=== PATIENT | male | born 1960 | race Caucasian/White ===

== ENCOUNTER 2018-06-07 19:05 | Inpatient (IN) | payer MEDICAID, OTHER ==
[2018-06-07] MEDS ORDERED: Sodium Chloride 0.9% 1,000 ML IV ONE (19:42)
[2018-06-07] MEDS ORDERED: Iohexol 240 (50 ml) PO ONE (19:45)
[2018-06-07 19:50] LABS: BASO # 0.1 K/uL (0.0-0.2); EOS # 0.2 K/uL (0.0-0.7); HEMOGLOBIN 14.8 g/dL (12.0-18.0); MONO # 0.8 K/uL (0.0-0.8)
--- NOTE | 2018-06-07 19:56 | C.PDOC ---
History Of Present Illness 57 year old male presents to ED with complaint of right lower quadrant abdominal pain that began 2 days ago. He describes the pain as constant and worsening with no radiation. He has a past medical history of hypertension and diabetes. Patient's PMD is . He denies smoking and any alcohol or drug abuse. Patient has a family history of stomach cancer. Patient has been experiencing discomfort with urination and frequency of urination. He denies any testicular or flank pain, fever, chills, nausea, vomiting, diarrhea, and constipation. Time Seen by Provider: 06/07/18 19:31 Chief Complaint (Nursing): Abdominal Pain History Per: Patient History/Exam Limitations: no limitations Onset/Duration Of Symptoms: Days (2) Current Symptoms Are (Timing): Still Present Location Of Pain/Discomfort: RLQ Quality Of Discomfort: "Pain" Associated Symptoms: Urinary Symptoms. denies: Fever, Chills, Nausea, Vomiting, Diarrhea, Constipation, Other (testicular pain) Past Medical History Reviewed: Historical Data, Nursing Documentation, Vital Signs Vital Signs: Last Vital Signs Temp 98.5 F 06/07/18 19:15 Pulse 90 06/07/18 19:15 Resp 16 06/07/18 19:15 BP 144/94 H 06/07/18 19:15 Pulse Ox 99 06/07/18 19:15 - Medical History PMH: Diabetes, HTN Family History: States: Other Other Family History: Stomach cancer - Social History Hx Alcohol Use: No Hx Substance Use: No - Immunization History Hx Tetanus Toxoid Vaccination: No Hx Influenza Vaccination: No Hx Pneumococcal Vaccination: No Review Of Systems Constitutional: Negative for: Fever, Chills, Weakness Cardiovascular: Negative for: Chest Pain, Palpitations Respiratory: Negative for: Cough, Shortness of Breath Gastrointestinal: Positive for: Abdominal Pain (right lower quadrant). Negative for: Nausea, Vomiting, Diarrhea, Constipation Genitourinary: Positive for: Dysuria (discomfort), Frequency. Negative for: Penile Pain Neurological: Negative for: Weakness, Numbness, Dizziness Physical Exam - Physical Exam Appears: No Acute Distress Skin: Warm, Dry Head: Atraumatic, Normacephalic Eye(s): bilateral: PERRL, EOMI Oral Mucosa: Moist Throat: No Erythema, No Exudate Cardiovascular: Rhythm Regular, No Murmur Respiratory: Normal Breath Sounds, No Wheezing Gastrointestinal/Abdominal: Tenderness (right lower quadrant, McBurney's point), No Mass, No Guarding, No Rebound, No Other (Gaston's sign) Back: Normal Inspection Extremity: Normal ROM, No Deformity ED Course And Treatment - Laboratory Results Result Diagrams: 06/09/18 07:18 06/09/18 07:18 O2 Sat by Pulse Oximetry: 99 (RA) Medical Decision Making Medical Decision Making: Impression: Right lower quadrant pain Differential Diagnosis: appendicitis, mesenteric addenitis, cystitis, renal colic Plan: CT Abdomen and Pelvis ordered for patient. Labs ordered with glucose and UA for patient. Patient given IV fluids. Labs unremarkable but CT c/w appendicitis DW Dr Suarez Surgery and Dr Hernandez Hospitalist DW pt findings and plan of care. Pt continues to decline pain medication. Disposition Counseled Patient/Family Regarding: Studies Performed, Diagnosis - Disposition Disposition: HOSPITALIZED Disposition Time: 23:00 Condition: FAIR - Clinical Impression Clinical Impression: Appendicitis - Scribe Statement The provider has reviewed the documentation as recorded by the Scribe (Phyllis Stephens) All medical record entries made by the Scribe were at my direction and personally dictated by me. I have reviewed the chart and agree that the record accurately reflects my personal performance of the history, physical exam, medical decision making, and the department course for this patient. I have also personally directed, reviewed, and agree with the discharge instructions and disposition.
[2018-06-07 20:05] LABS: BASO % 0.7 % (0.0-2.0); EOS % 2.3 % (0.0-4.0); LYMPH # 2.7 K/uL (1.0-4.3); LYMPH % 33.2 % (20.0-40.0); MEAN CELL VOLUME 88.1 fL (80.0-94.0); MEAN CORPUSCULAR HEMOGLOBIN 29.5 pg (27.0-31.0); MEAN CORPUSCULAR HGB CONC 33.5 g/dL (33.0-37.0); MEAN PLATELET VOLUME 8.4 fL (7.2-11.7); MONO % 9.7 % (0.0-10.0); NEUT # 4.3 K/uL (1.8-7.0); NEUT % 54.1 % (50.0-75.0); NRBC % 0.1 % (0.0-2.0); RBC 5.02 Mil/uL (4.40-5.90); RED CELL DISTRIBUTION WIDTH 13.5 % (11.5-14.5)
[2018-06-07 20:21] LABS: ALB/GLOB RATIO 1.4 (1.0-2.1)
[2018-06-07] MEDS ORDERED: Iohexol 240 (50 ml) ONE (20:24)
[2018-06-07 20:27] LABS: ALBUMIN 4.4 g/dL (3.5-5.0); ALT/SGPT 17 U/L (21-72); AST/SGOT 25 U/L (17-59); BLOOD UREA NITROGEN 22 mg/dL (9-20); CALCIUM 8.8 mg/dl (8.6-10.4); GFR NON-AFRICAN AMERICAN > 60
[2018-06-07 20:47] LABS: URINE BILIRUBIN NEGATIVE (NEGATIVE); URINE BLOOD 2+ (NEGATIVE); URINE CLARITY Clear (Clear); URINE COLOR Yellow (YELLOW); URINE GLUCOSE (UA) 1+ mg/dL (Normal); URINE LEUKOCYTE ESTERASE NEG Leu/uL (Negative); URINE PROTEIN NEGATIVE (NEGATIVE); URINE UROBILINOGEN NORMAL mg/dL (0.2-1.0)
[2018-06-07] MEDS ORDERED: Iohexol 300 100 ML IJ ONE (21:28)
[2018-06-07] MEDS ORDERED: Piperacillin/Tazobact 3.375 gm 100 ML IV STA (23:20)
[2018-06-07] MEDS ORDERED: Piperacillin/Tazobact 3.375 gm 100 ML IVPB ONE (23:35)
--- NOTE | 2018-06-07 23:37 | CP.PCM.HP ---
<Anusha Rene - Last Filed: 06/08/18 00:30> History of Present Illness - History of Present Illness History of Present Illness: PGY-1 Anusha Rene D.O. H&P for Dr. Hernandez's service: Patient is a 57 yo Somali male with a history of T2DM and HTN who presents with abdominal pain. Patient states the pain started 2-3 days ago. It came on gradually and was located in his mid right abdomen. The pain worsened and migrated more into his RLQ. He describes the pain as sharp. He rates the pain severity as 7/10. He did not do anything/take any medication to help relieve the pain. He did not note anything that makes the pain worse. He denies fevers and chills. Denies N/V/C/D. Denies change in appetite. PMH: T2DM, HTN PSH: back surgery for herniated disc 30 years ago Meds: Metformin 500 mg PO BID, Lisinopril 10 mg PO daily All: NKA upon admission (reaction to Zosyn in ED) FH: father ( 84)- cancer in the abdomen SH: lives with and children, works as pharmacy supplier, denies alcohol, tobacco, illicit drug use PMD: none (previously Renny Patel) Present on Admission - Present on Admission Any Indicators Present on Admission: No History of DVT/PE: No History of Uncontrolled Diabetes: No Urinary Catheter: No Decubitus Ulcer Present: No History Surgical Site Infection Following: None Review of Systems - Constitutional Constitutional: absent: Chills, Fever, Weight Loss - EENT Eyes: absent: Change in Vision Ears: absent: Decreased Hearing Nose/Mouth/Throat: absent: Nasal Congestion - Cardiovascular Cardiovascular: absent: Chest Pain, Diaphoresis, Dyspnea, Palpitations, Syncope - Respiratory Respiratory: absent: Cough, Dyspnea - Gastrointestinal Gastrointestinal: As Per HPI, Abdominal Pain. absent: Constipation, Diarrhea, Heartburn, Nausea, Vomiting - Genitourinary Genitourinary: Dysuria, Urinary Frequency. absent: Hematuria - Musculoskeletal Musculoskeletal: absent: Numbness, Tingling - Integumentary Integumentary: Pruritus. absent: Lesions - Neurological Neurological: absent: Dizziness, Focal Weakness, Headaches, Paresthesias - Psychiatric Psychiatric: absent: Anxiety, Depression - Endocrine Endocrine: Polyuria. absent: Palpitations - Hematologic/Lymphatic Hematologic: absent: Easy Bleeding, Easy Bruising, Lymphadenopathy Past Patient History - Infectious Disease Hx of Infectious Diseases: None - Tetanus Immunizations Tetanus Immunization: Unknown - Past Medical History & Family History Past Medical History?: Yes Past Family History: Reviewed and not pertinent - Past Social History Smoking Status: Never Smoked Chewing Tobacco Use: No Cigar Use: No Alcohol: None Drugs: Denies Home Situation {Lives}: With Family - CARDIAC Hx Hypertension: Yes - ENDOCRINE/METABOLIC Hx Diabetes Mellitus Type 2: Yes - PSYCHIATRIC Hx Substance Use: No Meds Allergies/Adverse Reactions: Allergies Allergy/AdvReac Type Severity Reaction Status Date / Time piperacillin [From Zosyn] Allergy RASH Verified 06/08/18 00:18 tazobactam [From Zosyn] Allergy RASH Verified 06/08/18 00:18 Physical Exam - Constitutional Appears: Non-toxic, No Acute Distress - Head Exam Head Exam: ATRAUMATIC, NORMAL INSPECTION - Eye Exam Eye Exam: EOMI, Normal appearance, PERRL - ENT Exam ENT Exam: Mucous Membranes Moist - Neck Exam Neck exam: Positive for: Normal Inspection - Respiratory Exam Respiratory Exam: Clear to Auscultation Bilateral, NORMAL BREATHING PATTERN - Cardiovascular Exam Cardiovascular Exam: RRR, +S1, +S2 - GI/Abdominal Exam GI & Abdominal Exam: Guarding, Normal Bowel Sounds, Soft, Tenderness (RLQ). absent: Distended, Rebound, Rigid Additional comments: negative Gaston's sign negative Psoas sign - Extremities Exam Extremities exam: Positive for: normal inspection, pedal pulses present. Negative for: pedal edema - Back Exam Back exam: NORMAL INSPECTION - Neurological Exam Neurological exam: Alert, CN II-XII Intact, Oriented x3 - Psychiatric Exam Psychiatric exam: Normal Affect, Normal Mood - Skin Skin Exam: Normal Color, Rash (hives on shoulders and left arm), Warm Results - Vital Signs Recent Vital Signs: Last Vital Signs Temp 98.5 F 06/07/18 19:15 Pulse 88 06/07/18 21:57 Resp 16 06/07/18 21:57 BP 147/91 H 06/07/18 21:57 Pulse Ox 98 06/07/18 21:57 - Labs Result Diagrams: 06/07/18 19:46 06/07/18 19:46 Labs: Laboratory Results - last 24 hr 06/07/18 06/07/1806/07/19 19:46 19:46 19:48 WBC 8.0 RBC 5.02 Hgb 14.8 Hct 44.2 MCV 88.1 MCH 29.5 MCHC 33.5 RDW 13.5 Plt Count 231 MPV 8.4 Neut % (Auto) 54.1 Lymph % (Auto) 33.2 [place] % (Auto) 9.7 Eos % (Auto) 2.3 Baso % (Auto) 0.7 Neut # (Auto) 4.3 Lymph # (Auto) 2.7 [place] # (Auto) 0.8 Eos # (Auto) 0.2 Baso # (Auto) 0.1 Sodium 135 Potassium 3.9 Chloride 99 Carbon Dioxide 26 Anion Gap 13 BUN 22 H Creatinine 0.9 Est GFR ( Amer) > 60 Est GFR (Non-Af Amer) > 60 POC Glucose (mg/dL) 204 H Random Glucose 233 H Calcium 8.8 Total Bilirubin 0.7 AST 25 ALT 17 L Alkaline Phosphatase 55 Total Protein 7.6 Albumin 4.4 Globulin 3.2 Albumin/Globulin Ratio 1.4 Urine Color Urine Clarity Urine pH Ur Specific [place] Urine Protein Urine Glucose (UA) Urine Ketones Urine Blood Urine Nitrate Urine Bilirubin Urine Urobilinogen Ur Leukocyte Esterase Urine RBC (Auto) 06/07/18 20:36 WBC RBC Hgb Hct MCV MCH MCHC RDW Plt Count MPV Neut % (Auto) Lymph % (Auto) [place] % (Auto) Eos % (Auto) Baso % (Auto) Neut # (Auto) Lymph # (Auto) [place] # (Auto) Eos # (Auto) Baso # (Auto) Sodium Potassium Chloride Carbon Dioxide Anion Gap BUN Creatinine Est GFR ( Amer) Est GFR (Non-Af Amer) POC Glucose (mg/dL) Random Glucose Calcium Total Bilirubin AST ALT Alkaline Phosphatase Total Protein Albumin Globulin Albumin/Globulin Ratio Urine Color Yellow Urine Clarity Clear Urine pH 6.0 Ur Specific [place] 1.010 Urine Protein Negative Urine Glucose (UA) 1+ H Urine Ketones Negative Urine Blood 2+ H Urine Nitrate Negative Urine Bilirubin Negative Urine Urobilinogen Normal Ur Leukocyte Esterase Neg Urine RBC (Auto) 15 H Assessment & Plan - Assessment and Plan (Free Text) Assessment: Patient is a 57 yo male with a history of T2DM and HTN who presented with abdominal pain. CT showed acute appendicitis. Surgery consulted and patient will go to OR tomorrow 06/08. Plan: Acute appendicitis - CT A/P: fluid distention up to 1.2 cm transversely of retrocecal appendix, appendiceal mucosal wall thickening with associated periappendiceal haziness consistent with acute appendicitis - Pre-op EKG, CXR, coags - Afebrile, no leukocytosis - f/u Blood Cx - Patient received Zosyn in ED- developed hives and pruritus, Zosyn stopped, given IV Benadryl - Cipro 400 mg IV Q12H- started 06/08 - NS @ 100 mL/hr - Surgery consulted (Erick) Microscopic hematuria - CT A/P: kidneys wnl, no urinary calculi, bladder normal size and configuration - UA: 1+ glucose, 2+ blood, 15 RBC - f/u Urine Cx Type 2 diabetes mellitus - Accuchecks Q6H - Hypoglycemic protocol - ISS - A1c pending Hypertension - Vitals Q6H - Lisinopril 10 mg PO daily Ppx: VTE: SCDs, chemical AC contraindicated for surgery GI: Protonix 40 mg IV daily Code status: full code Case discussed with attending, Dr. Hernandez. <Harshil Hernanedz - Last Filed: 06/08/18 06:15> Results - Vital Signs Recent Vital Signs: Last Vital Signs Temp 98 F 06/08/18 01:00 Pulse 82 06/08/18 01:00 Resp 20 06/08/18 01:00 BP 151/90 H 06/08/18 01:00 Pulse Ox 97 06/08/18 01:00 - Labs Result Diagrams: 06/07/18 19:46 06/07/18 19:46 Labs: Laboratory Results - last 24 hr 06/07/18 06/07/18 06/07/18 19:46 19:46 19:48 WBC 8.0 RBC 5.02 Hgb 14.8 Hct 44.2 MCV 88.1 MCH 29.5 MCHC 33.5 RDW 13.5 Plt Count 231 MPV 8.4 Neut % (Auto) 54.1 Lymph % (Auto) 33.2 [place] % (Auto) 9.7 Eos % (Auto) 2.3 Baso % (Auto) 0.7 Neut # (Auto) 4.3 Lymph # (Auto) 2.7 [place] # (Auto) 0.8 Eos # (Auto) 0.2 Baso # (Auto) 0.1 PT INR APTT Sodium 135 Potassium 3.9 Chloride 99 Carbon Dioxide 26 Anion Gap 13 BUN 22 H Creatinine 0.9 Est GFR ( Amer) > 60 Est GFR (Non-Af Amer) > 60 POC Glucose (mg/dL) 204 H Random Glucose 233 H Calcium 8.8 Total Bilirubin 0.7 AST 25 ALT 17 L Alkaline Phosphatase 55 Total Protein 7.6 Albumin 4.4 Globulin 3.2 Albumin/Globulin Ratio 1.4 Urine Color Urine Clarity Urine pH Ur Specific [place] Urine Protein Urine Glucose (UA) Urine Ketones Urine Blood Urine Nitrate Urine Bilirubin Urine Urobilinogen Ur Leukocyte Esterase Urine RBC (Auto) 06/07/18 06/08/18 06/08/18 20:36 00:35 00:46 WBC RBC Hgb Hct MCV MCH MCHC RDW Plt Count MPV Neut % (Auto) Lymph % (Auto) [place] % (Auto) Eos % (Auto) Baso % (Auto) Neut # (Auto) Lymph # (Auto) [place] # (Auto) Eos # (Auto) Baso # (Auto) PT 12.7 H INR 1.2 APTT 31 Sodium Potassium Chloride Carbon Dioxide Anion Gap BUN Creatinine Est GFR ( Amer) Est GFR (Non-Af Amer) POC Glucose (mg/dL) 131 H Random Glucose Calcium Total Bilirubin AST ALT Alkaline Phosphatase Total Protein Albumin Globulin Albumin/Globulin Ratio Urine Color Yellow Urine Clarity Clear Urine pH 6.0 Ur Specific [place] 1.010 Urine Protein Negative Urine Glucose (UA) 1+ H Urine Ketones Negative Urine Blood 2+ H Urine Nitrate Negative Urine Bilirubin Negative Urine Urobilinogen Normal Ur Leukocyte Esterase Neg Urine RBC (Auto) 15 H Assessment & Plan - Date & Time Date: 06/08/18 (I have seen and examined the patient. I agree with the findings and plan of care as documented by Dr. Rene. Patient with acute appendicitis. Consult to surgery. Medically optimize. Plan for appendectomy. Zosyn given in ED but patient had allergic reaction. Airway not compromised. Changed to cipro. History of hypertension and diabetes. Continue home meds. Monitor for acute changes.) Time: 06:13 Attending/Attestation - Attestation I have personally seen and examined this patient.: Yes I have fully participated in the care of the patient.: Yes I have reviewed all pertinent clinical information: Yes
[2018-06-08] MEDS ORDERED: DiphenhydrAMINE 50 mg/ml Inj IVP STA ×2 (00:06→00:08)
[2018-06-08] MEDS ORDERED: metroNIDAZOLE IV 500 mg/100 ml 500 MG/100 ML BAG IVPB STA (00:07)
[2018-06-08] MEDS ORDERED: Dextrose 50% SYRINGE Inj (50 ml) IV PRN (00:12)
[2018-06-08] MEDS ORDERED: Glucagon Recombinant 1 mg Inj IM PRN (00:12)
[2018-06-08] MEDS: (Novolin R) Insulin Human Regular 100 units/ml vial SC SCH ×4 (00:36→18:00)
[2018-06-08] MEDS: Sodium Chloride 0.9% 1,000 ML IV SCH ×3 (01:15→21:39)
[2018-06-08 01:17] LABS: INR 1.2; PROTHROMBIN TIME 12.7 SECONDS (9.7-12.2)
[2018-06-08] MEDS: Ciprofloxacin 400mg/200ml D5W 400 MG/200 ML BAG IVPB SCH ×2 (01:44→12:42)
--- NOTE | 2018-06-08 06:51 | CP.PCM.PN ---
Subjective - Date & Time of Evaluation Date of Evaluation: 06/08/18 Time of Evaluation: 07:30 - Subjective Subjective: PGY1 Medicine progress note for Dr. Ceballos Pt was seen and examined at bedside. Pt is resting comfortably. He rates his RLQ abdominal pain as 2/10, improved from 8/10. Pt denies radiation of the pain. He denies fever, chills, chest pain, sob, n/v/d, dysuria, hematuria. Appendectomy is to be done later this morning. Objective - Vital Signs/Intake and Output Vital Signs (last 24 hours): Temp Pulse Resp BP Pulse Ox 98 F 82 20 151/90 H 97 06/08/18 01:00 06/08/18 01:00 06/08/18 01:00 06/08/18 01:00 06/08/18 01:00 - Medications Medications: Current Medications Dextrose (Dextrose 50% Inj) 0 ml IV STAT PRN; Protocol PRN Reason: Hypoglycemia Protocol Dextrose (Glutose 15) 0 gm PO ONCE PRN; Protocol PRN Reason: Hypoglycemia Protocol Glucagon (Glucagen Diagnostic Kit) 0 mg IM STAT PRN; Protocol PRN Reason: Hypoglycemia Protocol Ciprofloxacin (Cipro 400mg/200ml Dsw) 400 mg in 200 mls @ 133 mls/hr IVPB Q12H JEFFREY; Protocol Last Admin: 06/08/18 01:44 Dose: 133 mls/hr Dextrose (Dextrose 5% In Water 1000 Ml) 1,000 mls @ 0 mls/hr IV .Q0M PRN; Protocol PRN Reason: Hypoglycemia Protocol Sodium Chloride (Sodium Chloride 0.9%) 1,000 mls @ 100 mls/hr IV .Q10H JEFFREY Last Admin: 06/08/18 01:15 Dose: 100 mls/hr Insulin Human Regular (Novolin R) 0 unit SC Q6H JEFFREY; Protocol Last Admin: 06/08/18 00:36 Dose: Not Given Lisinopril (Zestril) 10 mg PO DAILY JEFFREY Pantoprazole Sodium (Protonix Inj) 40 mg IVP DAILY JEFFREY Pneumococcal Polyvalent Vaccine (Pneumovax 23 Vaccine) 0.5 ml IM .ONCE ONE Stop: 06/09/18 10:01 - Labs Labs: 06/07/18 19:46 06/07/18 19:46 PT 12.7 SECONDS (9.7-12.2) H 06/08/18 00:46 INR 1.2 06/08/18 00:46 APTT 31 SECONDS (21-34) 06/08/18 00:46 - Additional Findings Additional findings: - Constitutional Appears: Non-toxic, No Acute Distress - Head Exam Head Exam: ATRAUMATIC, NORMAL INSPECTION - Eye Exam Eye Exam: EOMI, Normal appearance, PERRL - ENT Exam ENT Exam: Mucous Membranes Moist - Neck Exam Neck exam: Positive for: Normal Inspection - Respiratory Exam Respiratory Exam: Clear to Auscultation Bilateral, NORMAL BREATHING PATTERN - Cardiovascular Exam Cardiovascular Exam: RRR, +S1, +S2 - GI/Abdominal Exam GI & Abdominal Exam: Normal Bowel Sounds, Soft, Mild Tenderness at mcburney's point (RLQ). absent: Distended, Rebound, Rigid Additional comments: negative Gaston's sign negative Psoas sign - Extremities Exam Extremities exam: Positive for: normal inspection, pedal pulses present. Negative for: pedal edema - Back Exam Back exam: NORMAL INSPECTION - Neurological Exam Neurological exam: Alert, CN II-XII Intact, Oriented x3 - Psychiatric Exam Psychiatric exam: Normal Affect, Normal Mood - Skin Skin Exam: Normal Color, Warm. No rash. Assessment and Plan - Assessment and Plan (Free Text) Assessment: Patient is a 57 yo male with a history of T2DM and HTN who presented with abdominal pain. CT showed acute appendicitis. Surgery consulted and pt to go for appendectomy today. Plan: Acute appendicitis CT A/P: fluid distention up to 1.2 cm transversely of retrocecal appendix, appendiceal mucosal wall thickening with associated periappendiceal haziness consistent with acute appendicitis Afebrile, no leukocytosis Patient received Zosyn in ED- developed hives and pruritus, Zosyn stopped, given IV Benadryl. Pt states his rash has improved and denies any difficulty breathing or recurrence of itchiness or rash Cipro 400 mg IV q12h started 06/08, Flagyl 500 mg IVPB q8h started 06/08 Continue NS @ 100 mL/hr Surgery consulted (Erick). Will take to OR this morning. F/u blood culture Microscopic hematuria CT A/P: kidneys wnl, no urinary calculi, bladder normal size and configuration UA: 1+ glucose, 2+ blood, 15 RBC Urine culture is negative Will continue to monitor NIDDM2 On metformin at home; which has been held HgbA1c is 7.7 Accuchecks ACHS Hypoglycemic protocol RISS ACHS Hx of HTN Blood pressure is well controlled with home Lisinopril 10 mg PO daily Pulmonary nodules CT A/P shows multiple pulmonary nodules. Few paraortic and inguinal lymph nodes CXR shows no evidence of acute pulmonary disease. History noted nodule in the RML in the prior study is not clearly seen in the current study. If indicated, 6 months follow up reassessment by CT of the chest is recommended. Will refer for Chest CT on discharge and follow up with PMD or clinic Ppx: VTE: SCDs, chemical AC contraindicated for surgery GI: Protonix 40 mg IV daily Code status: full code Dispo: will monitor s/p appendectomy, potential discharge in tomorrow if no complications Case discussed with Dr. Lin Carvalho PGY1
--- NOTE | 2018-06-08 06:55 | CT ---
CT abdomen and pelvis HISTORY: Right lower quadrant abdominal pain. COMPARISON: None available. TECHNIQUE: Multiple contiguous axial images were performed through the abdomen and pelvis with the use of intravenous contrast. Subsequently, sagittal and coronal reformatted images were obtained. This CT exam was performed using one or more of the following dose reduction techniques: Automated exposure control, adjustment of the mA and/or kV according to patient size, and/or use of iterative reconstruction technique. Findings: 6.4 millimeter pulmonary nodule within the right middle lobe on series 3, image 7. Scattered atelectasis within the remaining visualized lung [place]. 2-3 millimeter nodular density at the left lung base on series 3, image 20. Additional 4 millimeter pulmonary nodule at the left lung base on series 3, image 6. No pleural or pericardial effusion. Hepatomegaly. Suggestion of a radiodense foci at the neck of the gallbladder which may represent a calculus. Correlation with right upper quadrant abdominal ultrasound may be helpful if clinically indicated. Spleen is preserved. Adrenal glands are preserved. Mild fatty atrophy of the pancreas. Upper abdominal bowel is grossly preserved. Right kidney: Mild perinephric fat stranding. Mild fullness of the right renal collecting system and ureter. Left Kidney: Mild perinephric fat stranding. No gross calculi or hydronephrosis. Urinary bladder is preserved. Heterogeneous and prominent prostate. Fecal retention in the colon. Thickened and enhancing appendix measuring up to 1.3 centimeters with adjacent fluid and fat stranding concerning for acute appendicitis. Atherosclerotic calcification and plaque within the aorta. Few shotty para-aortic and inguinal lymph nodes. Few shotty mesenteric lymph nodes. Degenerative changes in the spine and hips. Suggestion of 6 lumbar type vertebral bodies with prominent disc space narrowing and posterior disc osteophyte complex at the L5-6 level. Clinical correlation. Impression: 1. Findings concerning for acute appendicitis. Clinical correlation. 2. Prostatic hypertrophy. 3. Cholelithiasis. 4. Scattered pulmonary nodules in the lung [place] with a prominent 6.4 millimeter pulmonary nodule within the right middle lobe. Three - 6 month interval follow-up chest CT scan would be helpful for further evaluation if clinically indicated. 5. Hepatomegaly. 6. Degenerative changes in the spine. A preliminary report was generated at 11:02 p.m. on 06/07/[address] Duane Parra from [facility]
[2018-06-08 07:33] LABS: ALB/GLOB RATIO 1.3 (1.0-2.1); ALBUMIN 4.1 g/dL (3.5-5.0); ALT/SGPT 23 U/L (21-72); AST/SGOT 19 U/L (17-59); BLOOD UREA NITROGEN 15 mg/dL (9-20); CALCIUM 8.4 mg/dl (8.6-10.4); GFR NON-AFRICAN AMERICAN > 60
[2018-06-08 07:57] LABS: BASO % 0.5 % (0.0-2.0); EOS # 0.2 K/uL (0.0-0.7); EOS % 3.1 % (0.0-4.0); HEMOGLOBIN 14.7 g/dL (12.0-18.0); LYMPH # 1.9 K/uL (1.0-4.3); LYMPH % 28.4 % (20.0-40.0); MEAN CORPUSCULAR HEMOGLOBIN 30.3 pg (27.0-31.0); MEAN PLATELET VOLUME 8.3 fL (7.2-11.7); MONO # 0.7 K/uL (0.0-0.8); RBC 4.84 Mil/uL (4.40-5.90); RED CELL DISTRIBUTION WIDTH 13.7 % (11.5-14.5); WHITE BLOOD COUNT 6.9 K/uL (4.8-10.8)
--- NOTE | 2018-06-08 08:38 | RAD ---
Date of service: 06/08/2018 HISTORY: SOB COMPARISON: Comparison is made with the CT of the abdomen dated 06/07/2018 which showed right middle lobe nodule TECHNIQUE: Chest PA and lateral FINDINGS: LUNGS: Previously noted right middle lobe nodule in the previous CT of the abdomen is not clearly seen in the current exam. PLEURA: No significant pleural effusion identified. No pneumothorax apparent. CARDIOVASCULAR: No aortic atherosclerotic calcification present. Normal cardiac size. No pulmonary vascular congestion. OSSEOUS STRUCTURES: No significant abnormalities. VISUALIZED UPPER ABDOMEN: Normal. OTHER FINDINGS: None. IMPRESSION: No evidence of acute pulmonary disease. History noted nodule in the right middle lobe in the prior study is not clearly seen in the current study. If indicated 6 months follow-up reassessment by CT of the chest is recommended.
[2018-06-08] MEDS ORDERED: Succinylcholine Chloride 20 mg/ml Syr (5 ml) IV ONE (10:04)
[2018-06-08] MEDS ORDERED: Rocuronium 10 mg/ml (5 ml) ONE (10:04)
[2018-06-08] MEDS ORDERED: Propofol 10 mg/ml Inj (20 ML) ONE (10:04)
[2018-06-08] MEDS ORDERED: Midazolam 2 MG/2 ML VIAL ONE (10:04)
[2018-06-08] MEDS: metroNIDAZOLE IV 500 mg/100 ml 500 MG/100 ML BAG IVPB SCH ×2 (10:25→17:07)
[2018-06-08] MEDS ORDERED: Neostigmine 1:1000 (1 mg/ml) Inj ONE (10:55)
[2018-06-08] MEDS ORDERED: Oxycodone/Acetaminophen 5/325 mg Tab PO PRN (11:04)
[2018-06-08] MEDS ORDERED: HYDROmorphone 0.5 mg/0.5 ml ISec IVP PRN (11:14)
[2018-06-08] MEDS ORDERED: Piperacillin/Tazobact 3.375 GM in Sodium Chloride 100 ML IVPB SCH (11:15)
[2018-06-08 12:58] VITALS: RESP 20
[2018-06-09] MEDS: Ciprofloxacin 400mg/200ml D5W 400 MG/200 ML BAG IVPB SCH ×2 (00:19→12:09)
[2018-06-09] MEDS: (Novolin R) Insulin Human Regular 100 units/ml vial SC SCH ×3 (00:36→12:04)
[2018-06-09] MEDS: metroNIDAZOLE IV 500 mg/100 ml 500 MG/100 ML BAG IVPB SCH ×2 (01:49→09:50)
[2018-06-09] MEDS: Sodium Chloride 0.9% 1,000 ML IV SCH (06:19)
--- NOTE | 2018-06-09 06:47 | CP.PCM.DIS ---
<Leonides Carvalho - Last Filed: 06/09/18 14:37> Provider - Provider Date of Admission: 06/07/18 23:23 Attending physician: Harshil Hernandez MD Consults: 06/07/18 23:29 General Surgery Consult Stat Comment: Consulting Provider: Elvis Suarez Consulting Physician: Elvis Suarez Reason for Consult: appendicitis Time Spent in preparation of Discharge (in minutes): 35 Diagnosis - Discharge Diagnosis (1) Appendicitis Status: Acute (2) S/P laparoscopic appendectomy Status: Acute (3) HTN (hypertension) Status: Acute (4) Diabetes type 2, controlled Status: Acute Hospital Course - Lab Results Lab Results: Micro Results 06/08/18 00:30 Blood Blood Culture - Preliminary NO GROWTH AFTER 24 HOURS 06/08/18 00:36 Blood Blood Culture - Preliminary NO GROWTH AFTER 24 HOURS 06/07/18 20:36 Urine Random Urine Culture - Preliminary No growth. Most Recent Lab Values WBC 6.9 K/uL (4.8-10.8) 06/08/18 06:38 RBC 4.84 Mil/uL (4.40-5.90) 06/08/18 06:38 Hgb 14.7 g/dL (12.0-18.0) 06/08/18 06:38 Hct 43.1 % (35.0-51.0) 06/08/18 06:38 MCV 89.0 fL (80.0-94.0) 06/08/18 06:38 MCH 30.3 pg (27.0-31.0) 06/08/18 06:38 MCHC 34.0 g/dL (33.0-37.0) 06/08/18 06:38 RDW 13.7 % (11.5-14.5) 06/08/18 06:38 Plt Count 218 K/uL (130-400) 06/08/18 06:38 MPV 8.3 fL (7.2-11.7) 06/08/18 06:38 Neut % (Auto) 58.0 % (50.0-75.0) 06/08/18 06:38 Lymph % (Auto) 28.4 % (20.0-40.0) 06/08/18 06:38 Hamilton % (Auto) 10.0 % (0.0-10.0) 06/08/18 06:38 Eos % (Auto) 3.1 % (0.0-4.0) 06/08/18 06:38 Baso % (Auto) 0.5 % (0.0-2.0) 06/08/18 06:38 Neut # (Auto) 4.0 K/uL (1.8-7.0) 06/08/18 06:38 Lymph # (Auto) 1.9 K/uL (1.0-4.3) 06/08/18 06:38 Hamilton # (Auto) 0.7 K/uL (0.0-0.8) 06/08/18 06:38 Eos # (Auto) 0.2 K/uL (0.0-0.7) 06/08/18 06:38 Baso # (Auto) 0.0 K/uL (0.0-0.2) 06/08/18 06:38 PT 12.7 SECONDS (9.7-12.2) H 06/08/18 00:46 INR 1.2 06/08/18 00:46 APTT 31 SECONDS (21-34) 06/08/18 00:46 Sodium 138 mmol/L (132-148) 06/08/18 06:38 Potassium 3.6 mmol/L (3.6-5.2) 06/08/18 06:38 Chloride 103 mmol/L (98-107) 06/08/18 06:38 Carbon Dioxide 27 mmol/L (22-30) 06/08/18 06:38 Anion Gap 11 (10-20) 06/08/18 06:38 BUN 15 mg/dL (9-20) 06/08/18 06:38 Creatinine 0.9 mg/dL (0.8-1.5) 06/08/18 06:38 Est GFR ( Amer) > 60 06/08/18 06:38 Est GFR (Non-Af Amer) > 60 06/08/18 06:38 POC Glucose (mg/dL) 141 mg/dL (65-110) H 06/09/18 06:30 Random Glucose 162 mg/dL (75-110) H D 06/08/18 06:38 Hemoglobin A1c 7.7 % (4.2-6.5) H 06/08/18 06:38 Calcium 8.4 mg/dl (8.6-10.4) L 06/08/18 06:38 Phosphorus 3.3 mg/dL (2.5-4.5) 06/08/18 06:38 Magnesium 1.8 mg/dL (1.6-2.3) 06/08/18 06:38 Total Bilirubin 0.9 mg/dL (0.2-1.3) 06/08/18 06:38 AST 19 U/L (17-59) 06/08/18 06:38 ALT 23 U/L (21-72) 06/08/18 06:38 Alkaline Phosphatase 61 U/L (38-126) 06/08/18 06:38 Total Protein 7.3 g/dL (6.3-8.3) 06/08/18 06:38 Albumin 4.1 g/dL (3.5-5.0) 06/08/18 06:38 Globulin 3.2 gm/dL (2.2-3.9) 06/08/18 06:38 Albumin/Globulin Ratio 1.3 (1.0-2.1) 06/08/18 06:38 Urine Color Yellow (YELLOW) 06/07/18 20:36 Urine Clarity Clear (Clear) 06/07/18 20:36 Urine pH 6.0 (5.0-8.0) 06/07/18 20:36 Ur Specific Patton 1.010 (1.003-1.030) 06/07/18 20:36 Urine Protein Negative mg/dL (NEGATIVE) 06/07/18 20:36 Urine Glucose (UA) 1+ mg/dL (Normal) H 06/07/18 20:36 Urine Ketones Negative mg/dL (NEGATIVE) 06/07/18 20:36 Urine Blood 2+ (NEGATIVE) H 06/07/18 20:36 Urine Nitrate Negative (NEGATIVE) 06/07/18 20:36 Urine Bilirubin Negative (NEGATIVE) 06/07/18 20:36 Urine Urobilinogen Normal mg/dL (0.2-1.0) 06/07/18 20:36 Ur Leukocyte Esterase Neg Yolis/uL (Negative) 06/07/18 20:36 Urine RBC (Auto) 15 /hpf (0-3) H 06/07/18 20:36 - Hospital Course Hospital Course: On admission: Patient is a 57 yo [place] male with a history of T2DM and HTN who presents with abdominal pain. Patient states the pain started 2-3 days ago. It came on gradually and was located in his mid right abdomen. The pain worsened and migrated more into his RLQ. He describes the pain as sharp. He rates the pain severity as 7/10. He did not do anything/take any medication to help relieve the pain. He did not note anything that makes the pain worse. He denies fevers and chills. Denies N/V/C/D. Denies change in appetite. Hospital course: CT A/P: fluid distention up to 1.2 cm transversely of retrocecal appendix, appendiceal mucosal wall thickening with associated periappendiceal haziness consistent with acute appendicitis. Pt received Zosyn in ED, with subsequent rash but no respiratory compromise. Given Benadryl with resolution of symptoms. Pt was started on Cirpo and Flagyl. On 06/08, pt underwent lap appendectomy with Dr. Suarez, it was well tolerated. His blood glucose was well controlled in the hospital and did not need insulin. Microscopic blood was found on UA, with abd/pelv CT showing no calculi. Urine and blood cultures was negative. CT A/P shows multiple pulmonary nodules. Few paraortic and inguinal lymph nodes. CXR shows no evidence of acute pulmonary disease. History noted nodule in the RML in the prior study is not clearly seen in the current study. Will refer for Chest CT on discharge and follow up with PMD or clinic On discharge evaluation, pt is tolerating PO, walking without problems and has no complaints. This is a summary of the hospital course. Please see EMR for full details. Discharge Exam - Additional Findings Additional findings: - Constitutional Appears: Non-toxic, No Acute Distress - Head Exam Head Exam: ATRAUMATIC, NORMAL INSPECTION - Eye Exam Eye Exam: EOMI, Normal appearance, PERRL - ENT Exam ENT Exam: Mucous Membranes Moist - Neck Exam Neck exam: Positive for: Normal Inspection - Respiratory Exam Respiratory Exam: Clear to Auscultation Bilateral, NORMAL BREATHING PATTERN - Cardiovascular Exam Cardiovascular Exam: RRR, +S1, +S2 - GI/Abdominal Exam GI & Abdominal Exam: Normal Bowel Sounds, Soft, Nontender. absent: Distended, Rebound, Rigid, Ecchymosis - Extremities Exam Extremities exam: Positive for: normal inspection, pedal pulses present. Negative for: pedal edema - Back Exam Back exam: NORMAL INSPECTION - Neurological Exam Neurological exam: Alert, CN II-XII Intact, Oriented x3 - Psychiatric Exam Psychiatric exam: Normal Affect, Normal Mood - Skin Skin Exam: Normal Color, Warm. No rash. Laproscopic sites are nontender and covered with dressing. Discharge Plan - Discharge Medications Prescriptions: RX: Docusate [Colace] 100 mg PO BID 7 Days #14 cap - Follow Up Plan Condition: FAIR Disposition: HOME/ ROUTINE Instructions: Appendicitis, Adult (DC), Docusate, Appendectomy, Laparoscopic Surgery (DC) Additional Instructions: Pt is medically stable for discharge home as per Dr. Adair. Pt should continue taking his previously prescribed medications. He will be provided with prescription for Colace 100 mg PO BID for 7 days as needed, Percocet 5/325 mg PO every 6 hours as needed for pain. Pt will be provided with a prescription for Chest CT. Pt instructed to follow up with [facility] or [facility] for management of chronic medical problems (06/14/18 at 9 am). He should also have a Chest CT done outpatient within 6 months to follow up on nodules noted on abdominal/pelvic CT. He should have a repeat UA for microscopic hematuria noted during inpatient UA. He should follow up with Dr. Suarez for post appendectomy management in 1-2 weeks. If symptoms worsen, please go to the nearest emergency department for evaluation. Instructions were explained to the pt, who understands and agrees with discharge plan. Referrals: [facility] [Outside] Elvis Suarez MD [Staff Provider] - <Dany Adair - Last Filed: 06/09/18 16:26> Provider - Provider Date of Admission: 06/07/18 23:23 Attending physician: Harshil Hernandez MD Consults: 06/07/18 23:29 General Surgery Consult Stat Comment: Consulting Provider: Elvis Suarez Consulting Physician: Elvis Suarez Reason for Consult: appendicitis Hospital Course - Lab Results Lab Results: Micro Results 06/07/18 20:36 Urine Random Urine Culture - Final No Growth (<1,000 CFU/ML) 06/08/18 00:30 Blood Blood Culture - Preliminary NO GROWTH AFTER 24 HOURS 06/08/18 00:36 Blood Blood Culture - Preliminary NO GROWTH AFTER 24 HOURS Most Recent Lab Values WBC 8.0 K/uL (4.8-10.8) 06/09/18 07:18 RBC 4.80 Mil/uL (4.40-5.90) 06/09/18 07:18 Hgb 14.3 g/dL (12.0-18.0) 06/09/18 07:18 Hct 42.9 % (35.0-51.0) 06/09/18 07:18 MCV 89.3 fL (80.0-94.0) 06/09/18 07:18 MCH 29.8 pg (27.0-31.0) 06/09/18 07:18 MCHC 33.4 g/dL (33.0-37.0) 06/09/18 07:18 RDW 13.7 % (11.5-14.5) 06/09/18 07:18 Plt Count 229 K/uL (130-400) 06/09/18 07:18 MPV 8.1 fL (7.2-11.7) 06/09/18 07:18 Neut % (Auto) 49.1 % (50.0-75.0) L 06/09/18 07:18 Lymph % (Auto) 36.6 % (20.0-40.0) 06/09/18 07:18 Hamilton % (Auto) 11.6 % (0.0-10.0) H 06/09/18 07:18 Eos % (Auto) 2.3 % (0.0-4.0) 06/09/18 07:18 Baso % (Auto) 0.4 % (0.0-2.0) 06/09/18 07:18 Neut # (Auto) 3.9 K/uL (1.8-7.0) 06/09/18 07:18 Lymph # (Auto) 2.9 K/uL (1.0-4.3) 06/09/18 07:18 Hamilton # (Auto) 0.9 K/uL (0.0-0.8) H 06/09/18 07:18 Eos # (Auto) 0.2 K/uL (0.0-0.7) 06/09/18 07:18 Baso # (Auto) 0.0 K/uL (0.0-0.2) 06/09/18 07:18 PT 12.7 SECONDS (9.7-12.2) H 06/08/18 00:46 INR 1.2 06/08/18 00:46 APTT 31 SECONDS (21-34) 06/08/18 00:46 Sodium 136 mmol/L (132-148) 06/09/18 07:18 Potassium 3.6 mmol/L (3.6-5.2) 06/09/18 07:18 Chloride 99 mmol/L (98-107) 06/09/18 07:18 Carbon Dioxide 29 mmol/L (22-30) 06/09/18 07:18 Anion Gap 12 (10-20) 06/09/18 07:18 BUN 12 mg/dL (9-20) 06/09/18 07:18 Creatinine 1.0 mg/dL (0.8-1.5) 06/09/18 07:18 Est GFR ( Amer) > 60 06/09/18 07:18 Est GFR (Non-Af Amer) > 60 06/09/18 07:18 POC Glucose (mg/dL) 121 mg/dL (65-110) H 06/09/18 11:33 Random Glucose 141 mg/dL (75-110) H 06/09/18 07:18 Hemoglobin A1c 7.7 % (4.2-6.5) H 06/08/18 06:38 Calcium 8.3 mg/dl (8.6-10.4) L 06/09/18 07:18 Phosphorus 3.7 mg/dL (2.5-4.5) 06/09/18 07:18 Magnesium 1.8 mg/dL (1.6-2.3) 06/09/18 07:18 Total Bilirubin 0.9 mg/dL (0.2-1.3) 06/09/18 07:18 AST 24 U/L (17-59) 06/09/18 07:18 ALT 23 U/L (21-72) 06/09/18 07:18 Alkaline Phosphatase 57 U/L (38-126) 06/09/18 07:18 Total Protein 7.4 g/dL (6.3-8.3) 06/09/18 07:18 Albumin 4.1 g/dL (3.5-5.0) 06/09/18 07:18 Globulin 3.3 gm/dL (2.2-3.9) 06/09/18 07:18 Albumin/Globulin Ratio 1.3 (1.0-2.1) 06/09/18 07:18 Urine Color Yellow (YELLOW) 06/07/18 20:36 Urine Clarity Clear (Clear) 06/07/18 20:36 Urine pH 6.0 (5.0-8.0) 06/07/18 20:36 Ur Specific Patton 1.010 (1.003-1.030) 06/07/18 20:36 Urine Protein Negative mg/dL (NEGATIVE) 06/07/18 20:36 Urine Glucose (UA) 1+ mg/dL (Normal) H 06/07/18 20:36 Urine Ketones Negative mg/dL (NEGATIVE) 06/07/18 20:36 Urine Blood 2+ (NEGATIVE) H 06/07/18 20:36 Urine Nitrate Negative (NEGATIVE) 06/07/18 20:36 Urine Bilirubin Negative (NEGATIVE) 06/07/18 20:36 Urine Urobilinogen Normal mg/dL (0.2-1.0) 06/07/18 20:36 Ur Leukocyte Esterase Neg Yolis/uL (Negative) 06/07/18 20:36 Urine RBC (Auto) 15 /hpf (0-3) H 06/07/18 20:36 Attending/Attestation - Attestation I have personally seen and examined this patient.: Yes I have fully participated in the care of the patient.: Yes I have reviewed all pertinent clinical information, including history, physical exam and plan: Yes
--- NOTE | 2018-06-09 07:02 | OP ---
PROCEDURE DATE: 06/08/2018 PREOPERATIVE DIAGNOSIS: Acute appendicitis. POSTOPERATIVE DIAGNOSIS: Acute appendicitis. PROCEDURE PERFORMED: Laparoscopic appendectomy. SURGEON: Elvis Suarez MD ANESTHESIA: General. BLOOD LOSS: 20 mL. POSTOPERATIVE CONDITION: Stable. INDICATIONS FOR SURGERY: This is a 57-year-old male with a two-day history of abdominal pain, admitted last night, found to have appendicitis on CAT scan, taken to the operating room today for laparoscopic cholecystectomy. GROSS FINDINGS: The patient was taken to the operating room. General anesthesia was administered. The abdomen was prepped and draped. A periumbilical cut down was performed. A small umbilical hernia was encountered. The sac was dissected free, and a blunt port was inserted through the umbilical hernia site. The remaining left lower quadrant and suprapubic ports were then placed. The appendix was identified in the right lower quadrant. It was inflamed and imbedded in the retroperitoneal tissue. Careful blunt dissection was done. The adhesions were taken down. At this point, there was noted to be bleeding from the appendiceal artery, which was controlled with a clip. TA and endoscopic BRY were then placed across the base of the appendix and fired. The appendix was removed through an endoscopic bag through the lateral port. The right lower quadrant was irrigated with saline until clear. Ports were removed. The umbilical hernia was repaired with a Vicryl, and the skin was closed with clips. The patient tolerated the procedure well and returned to recovery room in stable condition. Elvis Suarez MD
[2018-06-09 07:35] LABS: BASO % 0.4 % (0.0-2.0); EOS # 0.2 K/uL (0.0-0.7); EOS % 2.3 % (0.0-4.0); HEMOGLOBIN 14.3 g/dL (12.0-18.0); LYMPH # 2.9 K/uL (1.0-4.3); LYMPH % 36.6 % (20.0-40.0); MEAN CELL VOLUME 89.3 fL (80.0-94.0); MEAN CORPUSCULAR HEMOGLOBIN 29.8 pg (27.0-31.0); MEAN CORPUSCULAR HGB CONC 33.4 g/dL (33.0-37.0); MEAN PLATELET VOLUME 8.1 fL (7.2-11.7); MONO # 0.9 K/uL (0.0-0.8); MONO % 11.6 % (0.0-10.0); NEUT # 3.9 K/uL (1.8-7.0); NEUT % 49.1 % (50.0-75.0); NRBC % 0.1 % (0.0-2.0); RBC 4.8 Mil/uL (4.40-5.90); RED CELL DISTRIBUTION WIDTH 13.7 % (11.5-14.5)
[2018-06-09 07:54] LABS: ALB/GLOB RATIO 1.3 (1.0-2.1); ALBUMIN 4.1 g/dL (3.5-5.0); ALT/SGPT 23 U/L (21-72); AST/SGOT 24 U/L (17-59); BLOOD UREA NITROGEN 12 mg/dL (9-20); CALCIUM 8.3 mg/dl (8.6-10.4); GFR NON-AFRICAN AMERICAN > 60
--- NOTE | 2018-06-09 08:18 | CP.PCM.PN ---
Subjective - Date & Time of Evaluation Date of Evaluation: 06/09/18 Time of Evaluation: 06:00 - Subjective Subjective: Progress note for Dr. Santamaria covering for Dr. Suarez. 57 year old male POD 1 s/p laparoscopic appendectomy. Patient seen and examined. He is sitting on the side of his bed, in no acute distress. Afebrile. Tolerated dinner last night, and has been walking the halls. He has voided. States he feels well. Denies fever, chills, nausea, vomiting, chest pain and shortness of breath. Objective - Vital Signs/Intake and Output Vital Signs (last 24 hours): Temp Pulse Resp BP Pulse Ox 98.0 F 70 20 114/69 98 06/09/18 04:30 06/09/18 04:30 06/09/18 04:30 06/09/18 04:30 06/09/18 04:30 Intake and Output: 06/09/18 06/09/18 06:59 18:59 Intake Total 2340 Output Total 500 Balance 1840 - Medications Medications: Current Medications Dextrose (Dextrose 50% Inj) 0 ml IV STAT PRN; Protocol PRN Reason: Hypoglycemia Protocol Dextrose (Glutose 15) 0 gm PO ONCE PRN; Protocol PRN Reason: Hypoglycemia Protocol Docusate Sodium (Colace) 100 mg PO BID [facility] Last Admin: 06/08/18 17:06 Dose: 100 mg Glucagon (Glucagen Diagnostic Kit) 0 mg IM STAT PRN; Protocol PRN Reason: Hypoglycemia Protocol Ciprofloxacin (Cipro 400mg/200ml Dsw) 400 mg in 200 mls @ 133 mls/hr IVPB Q12H [facility]; Protocol Last Admin: 06/09/18 00:19 Dose: 133 mls/hr Dextrose (Dextrose 5% In Water 1000 Ml) 1,000 mls @ 0 mls/hr IV .Q0M PRN; Protocol PRN Reason: Hypoglycemia Protocol Sodium Chloride (Sodium Chloride 0.9%) 1,000 mls @ 100 mls/hr IV .Q10H [facility] Last Admin: 06/09/18 06:19 Dose: 100 mls/hr Metronidazole (Flagyl) 500 mg in 100 mls @ 100 mls/hr IVPB Q8H [facility]; Protocol Last Admin: 06/09/18 01:49 Dose: 100 mls/hr Insulin Human Regular (Novolin R) 0 unit SC Q6H [facility]; Protocol Last Admin: 06/09/18 06:51 Dose: Not Given Lisinopril (Zestril) 10 mg PO DAILY [facility] Last Admin: 06/08/18 09:12 Dose: 10 mg Oxycodone/Acetaminophen (Percocet 5/325 Mg Tab) 2 tab PO Q4H PRN PRN Reason: pain Stop: 06/11/18 11:05 Last Admin: 06/09/18 00:56 Dose: 2 tab Pantoprazole Sodium (Protonix Inj) 40 mg IVP DAILY [facility] Last Admin: 06/08/18 09:12 Dose: 40 mg Pneumococcal Polyvalent Vaccine (Pneumovax 23 Vaccine) 0.5 ml IM .ONCE ONE Stop: 06/09/18 10:01 - Labs Labs: 06/09/18 07:18 06/09/18 07:18 PT 12.7 SECONDS (9.7-12.2) H 06/08/18 00:46 INR 1.2 06/08/18 00:46 APTT 31 SECONDS (21-34) 06/08/18 00:46 - Constitutional Appears: Non-toxic, No Acute Distress - Head Exam Head Exam: ATRAUMATIC, NORMOCEPHALIC - Eye Exam Eye Exam: Normal appearance - ENT Exam ENT Exam: Mucous Membranes Moist - Neck Exam Neck Exam: Full ROM - Respiratory Exam Respiratory Exam: NORMAL BREATHING PATTERN. absent: Accessory Muscle Use - GI/Abdominal Exam GI & Abdominal Exam: Soft. absent: Guarding, Tenderness, Rebound Additional comments: dressings over laparascopic incisions c/d/i. - Extremities Exam Extremities Exam: Full ROM, Normal Inspection - Neurological Exam Neurological Exam: Alert, Awake, Oriented x3 - Psychiatric Exam Psychiatric exam: Normal Affect, Normal Mood - Skin Skin Exam: Dry, Normal Color, Warm Assessment and Plan - Assessment and Plan (Free Text) Assessment: 57 year old male POD 1 s/p laparoscopic appendectomy. Plan: -Patient afebrile, tolerating diet and ambulating -Patient cleared for discharge from surgical standpoint. -Avoid heavy lifting -Follow up in office in one week. Further recs as per Dr. Rosalio Ford, PGY-1
[2018-06-09 08:46] VITALS: BP 145/87; PULSE 81; TEMP 97.5; O2SAT 99
[2018-06-09] MEDS ORDERED: Pneumococcal 23-Valent Vaccine IM ONE (10:00)
[2018-06-09] MEDS ORDERED: Influenza Vaccine 60 mcg/0.5 mL SYR (4YR UP) IM ONE (14:19)
--- NOTE | 2018-06-09 20:16 | CARD ---
APPROVED REPORT Date of service: 06/08/2018 EKG Measurement Heart [id number] <Conclusion> Normal sinus rhythm with sinus arrhythmia Normal ECG
== END 2018-06-09 14:46 | disposition home or self-care (01) | DRG 225 ==
LOC: C.ER 19:05 → C.9E 23:23 → C.5S 23:57 → C.3T 06-08 00:02
PROVIDERS: ADMIT Family Medicine; ATTEND Family Medicine
PROC: 0DTJ4ZZ Resection of Appendix, Percutaneous Endoscopic Approach (ICD-10-PCS; principal; 2018-06-08 10:00)
DX: K35.80 Unspecified acute appendicitis (principal); I10 Essential (primary) hypertension; K42.9 Umbilical hernia without obstruction or gangrene; E11.9 Type 2 diabetes mellitus without complications

== ENCOUNTER 2018-06-15 13:21 | Outpatient (CLI) | payer SELFPAY | END 2018-06-15 13:22 | disposition home or self-care (01) | LOC: C.CTH 13:22 | DX: R91.1 Solitary pulmonary nodule (principal) ==